=== PATIENT | female | born 1965 | race Caucasian/White ===

== ENCOUNTER → 2018-06-12 | Outpatient (REF) ==
[2018-06-12 16:53] LABS: THYROID STIMULATING HORMONE 1.92 uIU/mL (0.465-4.680)
== END ==
LOC: ZLAB.WCH 16:00
PROVIDERS: Physician Assistant
DX: Z01.89 Encounter for other specified special examinations (principal)

== ENCOUNTER → 2018-11-27 | Outpatient (CLI) | payer MEDICAID | LOC: COL.RAD 12:30 | DX: G43.909 Migraine, unspecified, not intractable, without status migrainosus (principal); I73.00 Raynaud's syndrome without gangrene; G24.3 Spasmodic torticollis; H53.2 Diplopia | CPT/HCPCS: A9585 ==